=== PATIENT | female | born 1945 | race Caucasian/White ===

== ENCOUNTER 2018-03-05 15:57 | Emergency (ER) | payer MEDICARE, OTHER ==
--- NOTE | 2018-03-05 16:19 | EDM.PDOC ---
ED HPI GENERAL MEDICAL PROBLEM - General Chief Complaint: Neck Problem Stated Complaint: neck, bilateral shoulder pain, vertigo Time Seen by Provider: 03/05/18 16:00 Source of Information: Reports: Patient, Family History Limitations: Reports: No Limitations - History of Present Illness INITIAL COMMENTS - FREE TEXT/NARRATIVE: Pt. persents to ER with complaints of neck and bilateral shoulder pain post fall. Pt. states that she has been experiencing vertigo for the past several days. states that she fell backward and slid/rolled down the hill, and also landed somewhat on her R shoulder area. Complains cervical spinal pain, occipital pain, and bilateral shoulder discomfort. No numbness/tingling in the extremities. No pain to the rest of her back or chest. Onset: Today Onset Date: 03/05/18 Onset Time: 16:21 Location: Reports: Head, Neck, Upper Extremity, Left, Upper Extremity, Right Quality: Reports: Sharp, Throbbing Severity: Moderate Shoulder Pain Score (Numeric/FACES): 4 - Related Data Allergies Allergy/AdvReac Type Severity Reaction Status Date / Time Cephalosporins Allergy Rash Verified 03/05/18 16:22 sulfamethoxazole Allergy Other Verified 03/05/18 16:06 [From Bactrim] trimethoprim [From Bactrim] Allergy Other Verified 03/05/18 16:06 Home Meds: Home Meds FLUoxetine HCl [Prozac] 20 mg DAILY 03/05/18 [History] Pantoprazole Sodium [Protonix] 40 mg DAILY 03/05/18 [History] Simvastatin [Zocor] 20 mg DAILY 03/05/18 [History] ED ROS GENERAL - Review of Systems Review Of Systems: See Below Constitutional: Reports: No Symptoms HEENT: Reports: No Symptoms Respiratory: Reports: No Symptoms Cardiovascular: Reports: No Symptoms Endocrine: Reports: No Symptoms GI/Abdominal: Reports: No Symptoms : Reports: No Symptoms Musculoskeletal: Reports: Other (see hpi) Skin: Reports: No Symptoms Neurological: Reports: No Symptoms Psychiatric: Reports: No Symptoms Hematologic/Lymphatic: Reports: No Symptoms Immunologic: Reports: No Symptoms ED EXAM, GENERAL - Physical Exam Exam: See Below Exam Limited By: No Limitations General Appearance: Alert, WD/WN, No Apparent Distress Eye Exam: Bilateral Eye: EOMI, Normal Fundi, Normal Inspection, PERRL Ears: Normal External Exam, Normal Canal, Hearing Grossly Normal, Normal TMs Ear Exam: Bilateral Ear: Auricle Normal, Canal Normal, TM normal Nose: Normal Inspection, Normal Mucosa, No Blood Throat/Mouth: Normal Inspection, Normal Lips, Normal Teeth, Normal Gums, Normal Oropharynx, Normal Voice, No Airway Compromise Head: Atraumatic, Normocephalic Neck: Limited Range of Motion, Tender Lateral, Tender Midline Respiratory/Chest: No Respiratory Distress, Lungs Clear, Normal Breath Sounds, No Accessory Muscle Use, Chest Non-Tender Cardiovascular: Normal Peripheral Pulses, Regular Rate, Rhythm, No Edema, No Gallop, No JVD, No Murmur, No Rub Peripheral Pulses: 4+: Radial (L), Radial (R) Extremities: Other (tenderness across top of both shoulders. Mild erythema noted to R posteriolateral shoulder) Neurological: Normal Cognition, Normal Reflexes, No Motor/Sensory Deficits Psychiatric: Normal Affect, Normal Mood Skin Exam: Warm, Dry, Intact, Normal Color, No Rash Lymphatic: No Adenopathy Course - Vital Signs Last Recorded V/S: Last Vital Signs Temp 36.4 C 03/05/18 15:57 Pulse 81 03/05/18 15:57 Resp 16 03/05/18 15:57 BP 124/67 03/05/18 15:57 Pulse Ox 94 L 03/05/18 15:57 - Orders/Labs/Meds Orders: Active Orders 24 hr Category Date Time Status Cervical Spine wo Cont [CT] Stat Exams 03/05/18 16:08 Taken Hand Comp Min 3V Lt [CR] Stat Exams 03/05/18 16:21 Taken Head wo Cont [CT] Stat Exams 03/05/18 16:07 Taken Shoulder Comp Bi [CR] Stat Exams 03/05/18 16:09 Taken Meds: Medications Discontinued Medications Generic Name Dose Route Start Last Admin Trade Name Freq PRN Reason Stop Dose Admin Hydrocodone Bitart/Acetaminophen 1 tab 03/05/18 16:54 03/05/18 17:00 [place] 325-5 Mg PO 03/05/18 16:55 1 tab ONETIME ONE Administration Hydrocodone Bitart/Acetaminophen 1 packet 03/05/18 17:54 03/05/18 17:59 Take Home: Acetam/Hydrocodon 325-5 Mg, 5 Pack PO 03/05/18 17:55 1 packet ONETIME ONE Administration Departure - Departure Time of Disposition: 18:13 Disposition: Home, Self-Care 01 Condition: Good Clinical Impression: Metatarsal fracture - Discharge Information Instructions: Cast or Splint Care, Adult, [id number], Metatarsal Fracture Referrals: PCP,Not In Area [Primary Care Provider] - Forms: ED Department Discharge Additional Instructions: Possible non-displaced fracture of thumb. Follow-up in clinic in 7-10 days for repeat x-ray and placement of cast. Ibuprofen 600mg every 6 hours as needed for pain. [place] 5/325mg every 6 hours as needed for severe pain. Return to ER if worsening headache, confusion, weakness, or vomiting. - My Orders Last 24 Hours: My Active Orders 03/05/18 16:07 Head wo Cont [CT] Stat 03/05/18 16:08 Cervical Spine wo Cont [CT] Stat 03/05/18 16:09 Shoulder Comp Bi [CR] Stat 03/05/18 16:21 Hand Comp Min 3V Lt [CR] Stat - Assessment/Plan Last 24 Hours: My Active Orders 03/05/18 16:07 Head wo Cont [CT] Stat 03/05/18 16:08 Cervical Spine wo Cont [CT] Stat 03/05/18 16:09 Shoulder Comp Bi [CR] Stat 03/05/18 16:21 Hand Comp Min 3V Lt [CR] Stat
[2018-03-05] MEDS: Acetaminophen/HYDROcodone 325-5 MG Tab PO ONE (17:00)
[2018-03-05] MEDS: Take Home: Acetaminophen/HYDROcodone 325-5 MG, 5 Tab Pack PO ONE (17:59)
== END 2018-03-05 18:05 | disposition home or self-care (01) ==
LOC: VM.ED 15:57
DX: S16.1XXA Strain of muscle, fascia and tendon at neck level, initial encounter (principal); S46.911A Strain of unspecified muscle, fascia and tendon at shoulder and upper arm level, right arm, initial encounter; S46.912A Strain of unspecified muscle, fascia and tendon at shoulder and upper arm level, left arm, initial encounter; W19.XXXA Unspecified fall, initial encounter; Z88.8 Allergy status to other drugs, medicaments and biological substances
CPT/HCPCS: 29125; 70450; 72125; 73030-50; 73130-LT; 99283-GF; 99284; A9270-GY